=== PATIENT | male | born 1945 | race Caucasian/White ===

== ENCOUNTER 2017-01-04 | Outpatient (CLI) | payer MEDICARE | END 2017-01-04 15:06 | disposition short-term general hospital (02) | DX: R07.9 Chest pain, unspecified (principal) | CPT/HCPCS: A0425; A0427 ==

== ENCOUNTER → 2018-01-13 | Outpatient (CLI) | payer MEDICARE ==
[2018-01-13 17:50] LABS: BASOPHILS % (AUTO) 0.5 %; EOSINOPHILS # (AUTO) 0.2 10^3/uL (0.0-0.7); EOSINOPHILS % (AUTO) 2.5 %; HGB - HEMOGLOBIN 13.6 g/dL (14.0-18.0); LYMPHOCYTES # (AUTO) 1.8 10^3/uL (1.5-3.5); LYMPHOCYTES % (AUTO) 20.3 %; MEAN CORPUSCULAR HEMOGLOBIN 30.8 pg (27.0-31.0); MEAN CORPUSCULAR VOLUME 93.2 fL (80.0-94.0); MEAN PLATELET VOLUME 8.4 fL (7.4-11.4); MONOCYTES # (AUTO) 0.8 10^3/uL (0.0-1.0); MONOCYTES % (AUTO) 8.8 %; NEUTROPHILS % (AUTO) 67.9 %; PLT - PLATELET COUNT 240 10^3/uL (130-450); RED BLOOD COUNT 4.43 10^6/uL (4.70-6.10); RED CELL DISTRIBUTION WIDTH 13.3 % (12.0-15.0); WHITE BLOOD COUNT 8.9 x10^3/uL (4.8-10.8)
[2018-01-13 17:52] LABS: ALBUMIN/GLOBULIN RATIO 1.4 (1.0-2.2); BILIRUBIN,TOTAL 0.7 mg/dL (0.2-1.0); CALCIUM 8.9 mg/dL (8.5-10.3); CREATININE 0.8 mg/dL (0.6-1.2); TOTAL PROTEIN 6.8 g/dL (6.7-8.2)
== END ==
LOC: LAB.S 08:00
PROVIDERS: ATTEND Physician Assistant Medical
DX: I25.10 Atherosclerotic heart disease of native coronary artery without angina pectoris (principal); Z51.81 Encounter for therapeutic drug level monitoring; Z79.899 Other long term (current) drug therapy
CPT/HCPCS: 36415; 80053; 85025

== ENCOUNTER 2018-05-16 07:24 | Outpatient (CLI) | payer MEDICARE, OTHER ==
[2018-05-16 12:58] LABS: CHOL/HDL RATIO 2.1 (<5.0); CHOLESTEROL 143 mg/dL; HDL CHOLESTEROL 69 mg/dL; LDL CHOLESTEROL,CALCULATED 65 mg/dL; LDL/HDL RATIO 0.9 (<3.6); VLDL CHOLESTEROL 9 mg/dL
== END 2018-05-16 07:25 | disposition home or self-care (01) ==
LOC: LAB.F 07:24
PROVIDERS: ATTEND Physician Assistant Medical
DX: I25.10 Atherosclerotic heart disease of native coronary artery without angina pectoris (principal)
CPT/HCPCS: 36415; 80061; 83721

== ENCOUNTER 2018-06-20 09:15 | Outpatient (CLI) | payer MEDICARE, OTHER | END 2018-06-20 09:16 | disposition home or self-care (01) | LOC: LAB.F 09:15 | PROVIDERS: ATTEND Physician Assistant Medical | DX: Z12.5 Encounter for screening for malignant neoplasm of prostate (principal) | CPT/HCPCS: 36415; G0103; 84153 ==

== ENCOUNTER 2019-07-15 07:33 | Outpatient (CLI) | payer MEDICARE, OTHER ==
[2019-07-15 10:23] LABS: ALBUMIN/GLOBULIN RATIO 1.4 (1.0-2.2); ALKALINE PHOSPHATASE 46 IU/L (42-121); ALT ALANINE AMINOTRANSFERASE 22 IU/L (10-60); AST ASPARTATE AMINOTRANSFERASE 19 IU/L (10-42); BILIRUBIN,TOTAL 0.8 mg/dL (0.2-1.0); BUN - BLOOD UREA NITROGEN 22 mg/dL (6-20); CALCIUM 8.9 mg/dL (8.5-10.3); CARBON DIOXIDE - CO2 30 mmol/L (21-32); CHLORIDE 104 mmol/L (101-111); CHOLESTEROL 154 mg/dL; CREATININE 0.7 mg/dL (0.6-1.2); GFR - MDRD 110 (>89); GLUCOSE 91 mg/dL (70-100); HDL CHOLESTEROL 76 mg/dL; SODIUM 139 mmol/L (135-145); TOTAL PROTEIN 6.8 g/dL (6.7-8.2)
== END 2019-07-15 07:34 | disposition home or self-care (01) ==
LOC: LAB.S 07:33
PROVIDERS: ATTEND Internal Medicine
DX: E78.5 Hyperlipidemia, unspecified (principal); N40.1 Benign prostatic hyperplasia with lower urinary tract symptoms; N13.8 Other obstructive and reflux uropathy
CPT/HCPCS: 36415; 80053; 80061; 83721; 84153

== ENCOUNTER 2020-08-08 07:34 | Outpatient (CLI) | payer MEDICARE, OTHER ==
[2020-08-08 15:36] LABS: ALBUMIN 4.3 g/dL (3.2-5.5); ALBUMIN/GLOBULIN RATIO 1.7 (1.0-2.2); ALKALINE PHOSPHATASE 56 IU/L (42-121); ALT ALANINE AMINOTRANSFERASE 17 IU/L (10-60); AST ASPARTATE AMINOTRANSFERASE 18 IU/L (10-42); BILIRUBIN,TOTAL 1.1 mg/dL (0.2-1.0); BUN - BLOOD UREA NITROGEN 21 mg/dL (6-20); CALCIUM 9.5 mg/dL (8.5-10.3); CARBON DIOXIDE - CO2 28 mmol/L (21-32); CHLORIDE 106 mmol/L (101-111); CHOL/HDL RATIO 2.3 (<5.0); CHOLESTEROL 162 mg/dL; CREATININE 0.7 mg/dL (0.6-1.2); GLUCOSE 99 mg/dL (70-100); HDL CHOLESTEROL 72 mg/dL; LDL CHOLESTEROL,CALCULATED 80 mg/dL; LDL/HDL RATIO 1.1 (<3.6); SODIUM 141 mmol/L (135-145); TOTAL PROTEIN 6.9 g/dL (6.7-8.2); VLDL CHOLESTEROL 10 mg/dL
== END 2020-08-08 07:35 | disposition home or self-care (01) ==
LOC: LAB.S 07:34
PROVIDERS: ATTEND Internal Medicine
DX: E78.5 Hyperlipidemia, unspecified (principal); N40.1 Benign prostatic hyperplasia with lower urinary tract symptoms
CPT/HCPCS: 36415; 80053; 80061; 83721

== ENCOUNTER 2020-11-26 08:00 | Outpatient (CLI) | payer MEDICARE, OTHER ==
[2020-11-26 15:26] LABS: BASOPHILS % (AUTO) 0.2 %; EOSINOPHILS # (AUTO) 0.1 10^3/uL (0.0-0.7); EOSINOPHILS % (AUTO) 0.7 %; LYMPHOCYTES % (AUTO) 8.1 %; MEAN CORPUSCULAR HEMOGLOBIN 30.4 pg (27.0-31.0); MEAN CORPUSCULAR HGB CONC 31.7 g/dL (32.0-36.0); MEAN CORPUSCULAR VOLUME 95.9 fL (80.0-94.0); MEAN PLATELET VOLUME 9.4 fL (7.4-11.4); MONOCYTES % (AUTO) 8.5 %; NEUTROPHILS % (AUTO) 82.2 %; PLT - PLATELET COUNT 370 10^3/uL (130-450); RED BLOOD COUNT 3.95 10^6/uL (4.70-6.10); RED CELL DISTRIBUTION WIDTH 12.2 % (12.0-15.0); WHITE BLOOD COUNT 12.2 x10^3/uL (4.8-10.8)
[2020-11-26 15:34] LABS: CRP - C-REACTIVE PROTEIN 7.8 mg/dL (0-1.0)
== END 2020-11-26 23:59 | disposition home or self-care (01) ==
LOC: LAB.S 08:00
PROVIDERS: ATTEND Physician Assistant Medical
DX: R53.83 Other fatigue (principal); D64.9 Anemia, unspecified; M25.50 Pain in unspecified joint
CPT/HCPCS: 36415; 82728; 83540; 84443; 84466; 85025; 85651; 86140

== ENCOUNTER 2020-11-26 09:35 | Outpatient (CLI) | payer MEDICARE, OTHER | END 2020-11-26 23:59 | disposition home or self-care (01) | LOC: LAB.R 09:35 | PROVIDERS: ATTEND Physician Assistant Medical | DX: R31.9 Hematuria, unspecified (principal); R68.89 Other general symptoms and signs; R53.83 Other fatigue | CPT/HCPCS: 87086 ==

== ENCOUNTER 2020-12-06 07:44 | Outpatient (CLI) | payer MEDICARE, OTHER ==
[2020-12-06 16:02] LABS: BASOPHILS % (AUTO) 0.3 %; EOSINOPHILS # (AUTO) 0.1 10^3/uL (0.0-0.7); EOSINOPHILS % (AUTO) 0.5 %; HGB - HEMOGLOBIN 12.2 g/dL (14.0-18.0); LYMPHOCYTES # (AUTO) 0.9 10^3/uL (1.5-3.5); LYMPHOCYTES % (AUTO) 7.9 %; MEAN CORPUSCULAR HEMOGLOBIN 29.7 pg (27.0-31.0); MEAN CORPUSCULAR VOLUME 95.6 fL (80.0-94.0); MEAN PLATELET VOLUME 9.9 fL (7.4-11.4); MONOCYTES % (AUTO) 8.1 %; NEUTROPHILS # (AUTO) 9.8 10^3/uL (1.5-6.6); NEUTROPHILS % (AUTO) 82.7 %; PLT - PLATELET COUNT 406 10^3/uL (130-450); RED BLOOD COUNT 4.11 10^6/uL (4.70-6.10); RED CELL DISTRIBUTION WIDTH 12.3 % (12.0-15.0); WHITE BLOOD COUNT 11.8 x10^3/uL (4.8-10.8)
[2020-12-06 16:30] LABS: ALBUMIN 3.3 g/dL (3.2-5.5); BILIRUBIN,TOTAL 0.7 mg/dL (0.2-1.0); CALCIUM 8.9 mg/dL (8.5-10.3); CREATININE 0.6 mg/dL (0.6-1.2); CRP - C-REACTIVE PROTEIN 6.2 mg/dL (0-1.0); TOTAL PROTEIN 6.5 g/dL (6.7-8.2)
== END 2020-12-06 07:45 | disposition home or self-care (01) ==
LOC: LAB.S 07:44
PROVIDERS: ATTEND Internal Medicine
DX: I25.10 Atherosclerotic heart disease of native coronary artery without angina pectoris (principal); R53.1 Weakness; R79.82 Elevated C-reactive protein (CRP); R31.9 Hematuria, unspecified; R68.89 Other general symptoms and signs; M75.101 Unspecified rotator cuff tear or rupture of right shoulder, not specified as traumatic
CPT/HCPCS: 36415; 80053; 82533; 85025; 85651; 86140

== ENCOUNTER 2020-12-11 08:04 | Outpatient (CLI) | payer MEDICARE, OTHER | END 2020-12-11 08:05 | disposition left against medical advice (07) | LOC: EMS 08:04 | PROVIDERS: ATTEND Surgery | DX: R53.1 Weakness (principal) ==

== ENCOUNTER 2021-01-30 08:48 | Outpatient (CLI) | payer MEDICARE, OTHER | END 2021-01-30 08:49 | disposition home or self-care (01) | LOC: LAB.S 08:48 | PROVIDERS: ATTEND Internal Medicine | DX: R53.1 Weakness (principal) | CPT/HCPCS: 36415; 85651; 86140 ==

== ENCOUNTER 2021-02-22 09:45 | Outpatient (CLI) | payer MEDICARE, OTHER | END 2021-02-22 09:46 | disposition home or self-care (01) | LOC: LAB.S 09:45 | PROVIDERS: ATTEND Internal Medicine | DX: M62.50 Muscle wasting and atrophy, not elsewhere classified, unspecified site (principal) | CPT/HCPCS: 36415; 81599; 84402; 84403 ==

== ENCOUNTER 2021-03-24 14:14 | Outpatient (CLI) | payer MEDICARE, OTHER ==
--- NOTE | 2021-03-24 15:57 | DEXA Report ---
PROCEDURE: Dexa Spine and/or Hip INDICATIONS: OSTEOPOROSIS TECHNIQUE: Dual energy x-ray absorptiometry (DXA) was performed on a [employer] System. Regions measur ed are the AP Spine, femoral neck, and if needed forearm. COMPARISON: None. FINDINGS: Lumbar Spine: Bone Mineral Density 1.131 g/cm/cm,T score -1.3. Left Hip: Bone Mineral Density 1.453 g/cm/cm,T score 2.4. Left Femoral Neck: Bone Mineral Density 1.165 g/cm/cm, T score 0.7. (T score greater or equal to -1.0: NORMAL) (T score from -1.1 to -2.4: OSTEOPENIA) (T score less than or equal to -2.5 to: OSTEOPOROSIS) Impression: Based on WHO criteria, the patient's bone mineral density is normal. Patients with diagnosis of osteoporosis or osteopenia should have regular bone mineral density assess ment. For those eligible for Medicare, routine testing is allowed once every 2 years. Testing frequ ency can be increased for patients who have rapidly progressing disease or for those who are receivin g medical therapy to restore bone mass. Reviewed by: Gentry Iniguez MD on 03/24/2021 3:56 PM PDT Approved by: Gentry Iniguez MD on 03/24/2021 3:56 PM PDT Station ID: [id number]
== END 2021-03-24 14:15 | disposition home or self-care (01) ==
LOC: DI 14:14
PROVIDERS: ATTEND Internal Medicine Rheumatology
DX: M81.0 Age-related osteoporosis without current pathological fracture (principal)

== ENCOUNTER 2021-04-12 10:21 | Outpatient (CLI) | payer MEDICARE, OTHER ==
[2021-04-12 12:05] LABS: BASOPHILS % (AUTO) 0.3 %; EOSINOPHILS # (AUTO) 0.1 10^3/uL (0.0-0.7); EOSINOPHILS % (AUTO) 0.8 %; HCT - HEMATOCRIT 41.9 % (42.0-52.0); HGB - HEMOGLOBIN 12.9 g/dL (14.0-18.0); LYMPHOCYTES # (AUTO) 1.4 10^3/uL (1.5-3.5); LYMPHOCYTES % (AUTO) 10.2 %; MEAN CORPUSCULAR HEMOGLOBIN 28.6 pg (27.0-31.0); MEAN CORPUSCULAR HGB CONC 30.8 g/dL (32.0-36.0); MEAN CORPUSCULAR VOLUME 92.9 fL (80.0-94.0); MEAN PLATELET VOLUME 9.7 fL (7.4-11.4); MONOCYTES % (AUTO) 7.4 %; NEUTROPHILS % (AUTO) 80.8 %; PLT - PLATELET COUNT 292 10^3/uL (130-450); RED BLOOD COUNT 4.51 10^6/uL (4.70-6.10); RED CELL DISTRIBUTION WIDTH 14.7 % (12.0-15.0); WHITE BLOOD COUNT 13.6 x10^3/uL (4.8-10.8)
[2021-04-12 18:20] LABS: ALBUMIN/GLOBULIN RATIO 1.4 (1.0-2.2); ALKALINE PHOSPHATASE 40 IU/L (42-121); ALT ALANINE AMINOTRANSFERASE 19 IU/L (10-60); AST ASPARTATE AMINOTRANSFERASE 17 IU/L (10-42); BILIRUBIN,TOTAL 0.7 mg/dL (0.2-1.0); BUN - BLOOD UREA NITROGEN 19 mg/dL (6-20); CALCIUM 9.4 mg/dL (8.5-10.3); CARBON DIOXIDE - CO2 29 mmol/L (21-32); CHLORIDE 104 mmol/L (101-111); CREATININE 0.7 mg/dL (0.6-1.2); CRP - C-REACTIVE PROTEIN < 1.0 mg/dL (0-1.0); GFR - MDRD 109 (>89); GLUCOSE 71 mg/dL (70-100); SODIUM 139 mmol/L (135-145); TOTAL PROTEIN 6.8 g/dL (6.7-8.2)
[2021-04-14 12:04] LABS: HEPATITIS C ANTIBODY NON-REACTIVE (NON-REACTIVE)
[2021-04-19 11:55] LABS: HEPATITIS B SURFACE ANTIGEN NON-REACTIVE
== END 2021-04-12 23:59 | disposition home or self-care (01) ==
LOC: LAB.WCP 10:21
PROVIDERS: ATTEND Internal Medicine Rheumatology
DX: M35.3 Polymyalgia rheumatica (principal)
CPT/HCPCS: 36415; 80053; 85025; 85651; 86140; 86803; 87340

== ENCOUNTER 2021-08-02 11:02 | Outpatient (CLI) | payer MEDICARE, OTHER ==
[2021-08-02 17:55] LABS: BASOPHILS % (AUTO) 0.2 %; EOSINOPHILS # (AUTO) 0.1 10^3/uL (0.0-0.7); EOSINOPHILS % (AUTO) 0.4 %; HGB - HEMOGLOBIN 13.6 g/dL (14.0-18.0); LYMPHOCYTES # (AUTO) 0.9 10^3/uL (1.5-3.5); LYMPHOCYTES % (AUTO) 8.2 %; MEAN CORPUSCULAR HGB CONC 31.6 g/dL (32.0-36.0); MEAN CORPUSCULAR VOLUME 94.7 fL (80.0-94.0); MEAN PLATELET VOLUME 9.8 fL (7.4-11.4); MONOCYTES # (AUTO) 0.4 10^3/uL (0.0-1.0); MONOCYTES % (AUTO) 3.7 %; NEUTROPHILS % (AUTO) 87.2 %; PLT - PLATELET COUNT 276 10^3/uL (130-450); RED BLOOD COUNT 4.54 10^6/uL (4.70-6.10); RED CELL DISTRIBUTION WIDTH 14.2 % (12.0-15.0); WHITE BLOOD COUNT 11.5 x10^3/uL (4.8-10.8)
[2021-08-02 18:12] LABS: ALBUMIN 4.1 g/dL (3.2-5.5); ALBUMIN/GLOBULIN RATIO 1.4 (1.0-2.2); ALKALINE PHOSPHATASE 45 IU/L (42-121); ALT ALANINE AMINOTRANSFERASE 22 IU/L (10-60); AST ASPARTATE AMINOTRANSFERASE 18 IU/L (10-42); BILIRUBIN,TOTAL 0.6 mg/dL (0.2-1.0); BUN - BLOOD UREA NITROGEN 20 mg/dL (6-20); CALCIUM 9.2 mg/dL (8.5-10.3); CARBON DIOXIDE - CO2 27 mmol/L (21-32); CHLORIDE 104 mmol/L (101-111); CREATININE 0.6 mg/dL (0.6-1.2); GFR - MDRD 131 (>89); GLUCOSE 92 mg/dL (70-100); SODIUM 139 mmol/L (135-145)
[2021-08-02 18:21] LABS: THYROID STIMULATING HORMONE 1.64 uIU/mL (0.34-5.60)
[2021-08-02 19:10] LABS: CRP - C-REACTIVE PROTEIN < 1.0 mg/dL (0-1.0)
== END 2021-08-02 23:59 | disposition home or self-care (01) ==
LOC: LAB.WCP 11:02
PROVIDERS: ATTEND Internal Medicine
DX: M35.3 Polymyalgia rheumatica (principal); R53.83 Other fatigue
CPT/HCPCS: 36415; 80053; 84443; 85025; 85651; 86140

== ENCOUNTER 2022-01-08 13:32 | Emergency (ER) | payer MEDICARE, OTHER ==
[2022-01-08 13:39] VITALS: BP 148/68
--- NOTE | 2022-01-08 13:44 | ED Physician Documentation ---
PD HPI MALE - Stated complaint Stated Complaint: GROIN PX - Chief complaint Chief Complaint: General - History obtained from History obtained from: Patient - History of Present Illness Timing - onset: How many weeks ago (1 1/2) Timing - duration: Weeks Timing - details: Gradual onset, Still present (has noted swelling of left scrotum increasingly over 1 1/2 weeks, noted when in shower or with changing clothes. Does not have pain.) Associated symptoms: Scrotal swelling. No: Dysuria, Urinary frequency, Genital sore / lesion, Abdominal pain Similar symptoms before: Has not had sx before Recently seen: Clinic (went [facility] eval and was referred to ER for testing, rather than arranging outpatient [facility]/S.) Review of Systems Constitutional: denies: Fever, Chills : denies: Dysuria, Frequency, Discharge Skin: denies: Rash PD PAST MEDICAL HISTORY - Past Medical History Cardiovascular: Hypertension : Benign prostate hypertrophy HEENT: Chronic vision loss - Past Surgical History Past Surgical History: Yes HEENT: Cataracts Derm: Skin cancer surgery - Present Medications Home Medications: Ambulatory Orders Medication Instructions Recorded Confirmed Finasteride [Proscar] 5 mg PO DAILY 02/08/14 01/08/22 Tamsulosin [Flomax] 0.4 mg PO DAILY 02/08/14 01/08/22 Famotidine [Acid-Pep] 20 mg PO DAILY 01/08/22 01/08/22 Prednisone [Marilu] 4 mg PO DAILY 01/08/22 01/08/22 - Allergies Allergies/Adverse Reactions: Allergies Allergy/AdvReac Type Severity Reaction Status Date / Time No Known Drug Allergies Allergy Verified 01/08/22 13:35 - Social History Does the pt smoke?: No Smoking Status: Never smoker Does the pt drink ETOH?: Yes Does the pt have substance abuse?: No - Immunizations Immunizations are current?: Yes PD ED PE NORMAL - Vitals Vital signs reviewed: Yes - General General: Alert and oriented X 3, No acute distress, Well developed/nourished - Abdomen Abdomen: Soft, Non tender - Male Male : Other (normal penis and inguinal area without hernias nor adenopathy. right testicle/scrotal area normal architecture and not tender. Left scrotum with large fullness/fluctuance and hard to distinguish testicle/other swelling. NO tenderness. ) - Rectal Rectal: Deferred - Back Back: No CVA TTP - Derm Derm: Normal color, Warm and dry Results - Vitals Vitals: Vital Signs - 24 hr 01/08/22 13:35 Temperature 36.5 C Heart Rate 85 Respiratory 16 Rate Blood Pressure 148/68 H O2 Saturation 100 Oxygen O2 Source Room air - Labs Labs: Laboratory Tests 01/08/22 14:25 Urine Color YELLOW Urine Clarity CLEAR Urine pH 7.0 Ur Specific [place] 1.020 Urine Protein NEGATIVE Urine Glucose (UA) NEGATIVE Urine Ketones NEGATIVE Urine Occult Blood TRACE-INTA Urine Nitrite NEGATIVE Urine Bilirubin NEGATIVE Urine Urobilinogen 0.2 (NORMAL) Ur Leukocyte Esterase NEGATIVE Ur Microscopic Review NOT INDICATED Urine Culture Comments NOT INDICATED - Rads (name of study) scrotal U/S Radiology: Prelim report reviewed (normal testicles. Large hydrocele left scrotum. ), See rad report PD MEDICAL DECISION MAKING - ED course Complexity details: reviewed results (large hydrocele. Testicle okay. ), considered differential (swelling without tenderness left scrotum, consider hydrocele or other process. ), d/w patient Departure - Departure Disposition: 01 Home, Self Care Clinical Impression: Scrotal swelling, Hydrocele in adult Condition: Stable Record reviewed to determine appropriate education?: Yes Instructions: ED Hydrocele Type Not Specified Follow-Up: Luis Alberto Rao MD [Primary Care Provider] - Carroll Hassan MD [Physician No Access] - Ramya Cohn MD [Provider Admit Priv/Credential] - Comments: Your ultrasound shows a large fluid collection adjacent to the testicle. This is called a hydrocele. It is a benign collection of fluid and sometimes will resorb and get better on its own. The testicle itself looked fine on ultrasound. If the swelling continues, the urologist can drain it so it is less symptomatic. Follow-up with the urologist for subsequent appointment. Agree provided the name for a couple of them in [place] or [place]. Otherwise you could get other referrals through your primary care if those are not able to see you. Discharge Date/Time: 01/08/22 16:21
[2022-01-08 14:38] LABS: BILIRUBIN,URINE NEGATIVE (NEGATIVE); GLUCOSE, URINE (UA) NEGATIVE (NEGATIVE); KETONES,URINE (UA) NEGATIVE (NEGATIVE); LEUKOCYTE ESTERASE, URINE NEGATIVE (NEGATIVE); NITRITE,URINE NEGATIVE (NEGATIVE); OCCULT BLOOD,URINE TRACE-INTA (NEGATIVE); PROTEIN,URINE NEGATIVE (NEGATIVE); UROBILINOGEN,URINE 0.2 (NORMAL) E.U./dL (NORMAL)
[2022-01-08 14:39] LABS: CLARITY,URINE CLEAR (CLEAR)
--- NOTE | 2022-01-08 15:45 | Ultrasound Report ---
PROCEDURE: Testicle w/Doppler INDICATIONS: left testicle/scrotal swelling for several days. TECHNIQUE: Real-time scanning was performed of the scrotum and testicles, with image documentation. Color and p ulse Doppler interrogation was performed of both testicles. COMPARISON: None. FINDINGS: Right: Testicle is normal in size at 5.1 x 2.8 x 2.9 cm, and homogenous in echotexture. Multiple epi didymal cysts are present the largest measuring 2.5 x 2.1 x 2.7 cm. There is a small hydrocele. Overl flash scrotal skin is normal in thickness. Left: Testicle is normal in size at 4.7 x 2.9 x 3.2 cm, and homogeneous in echotexture. Multiple epi didymal cysts are present the largest measuring 2.6 x 1.1 x 2.1 cm. Large hydrocele is present. Overl flash scrotal skin is normal in thickness. Doppler: Color and pulse Doppler demonstrate normal and symmetric arterial flow in both testicles. IMPRESSION: Bilateral hydroceles, left greater than right. Bilateral epididymal cysts. No torsion at time of exam. Intermittent torsion cannot be excluded. Reviewed by: Jud Marsh MD on 01/08/2022 3:44 PM PST Approved by: Jud Marsh MD on 01/08/2022 3:44 PM PST Station ID: [id number]
== END 2022-01-08 16:21 | disposition home or self-care (01) ==
LOC: ED 13:32
DX: N43.3 Hydrocele, unspecified (principal)
CPT/HCPCS: 81001; 81003; 87086; 93975; 99282; 99284

== ENCOUNTER 2022-05-25 07:25 | Outpatient (CLI) | payer MEDICARE, OTHER | END 2022-05-25 07:26 | disposition home or self-care (01) | LOC: LAB.S 07:25 | PROVIDERS: ATTEND Internal Medicine Rheumatology | DX: M35.3 Polymyalgia rheumatica (principal) | CPT/HCPCS: 36415; 85651; 86140 ==

== ENCOUNTER 2023-02-01 09:15 | Outpatient (CLI) | payer MEDICARE, OTHER ==
[2023-02-01 15:18] LABS: ALBUMIN 3.9 g/dL (3.2-5.5); ALBUMIN/GLOBULIN RATIO 1.3 (1.0-2.2); ALKALINE PHOSPHATASE 61 IU/L (42-121); ALT ALANINE AMINOTRANSFERASE 17 IU/L (10-60); AST ASPARTATE AMINOTRANSFERASE 17 IU/L (10-42); BILIRUBIN,TOTAL 0.6 mg/dL (0.2-1.0); BUN - BLOOD UREA NITROGEN 19 mg/dL (6-20); CALCIUM 8.8 mg/dL (8.5-10.3); CARBON DIOXIDE - CO2 27 mmol/L (21-32); CHLORIDE 105 mmol/L (101-111); CREATININE 0.7 mg/dL (0.6-1.2); GFR - MDRD 109 (>89); GLUCOSE 119 mg/dL (70-100); POTASSIUM 3.7 mmol/L (3.5-5.0); SODIUM 138 mmol/L (135-145); TOTAL PROTEIN 6.9 g/dL (6.7-8.2)
[2023-02-01 15:33] LABS: CRP - C-REACTIVE PROTEIN < 1.0 mg/dL (0-1.0)
== END 2023-02-01 09:16 | disposition home or self-care (01) ==
LOC: LAB.S 09:15
PROVIDERS: ATTEND Internal Medicine Rheumatology
DX: M35.3 Polymyalgia rheumatica (principal)
CPT/HCPCS: 36415; 80053; 85651; 86140

== ENCOUNTER 2023-03-01 09:15 | Outpatient (CLI) | payer MEDICARE, OTHER | END 2023-03-01 09:16 | disposition home or self-care (01) | LOC: LAB.S 09:15 | PROVIDERS: ATTEND Internal Medicine Rheumatology | DX: M35.3 Polymyalgia rheumatica (principal) | CPT/HCPCS: 36415; 85651; 86140 ==

== ENCOUNTER 2023-11-21 13:34 | Outpatient (CLI) | payer MEDICARE, OTHER ==
--- NOTE | 2023-11-21 17:39 | XRAY Report ---
PROCEDURE: Knee 1-2V BL INDICATIONS: BILATERAL KNEE PAIN TECHNIQUE: 3 views of the knee(s) were acquired. COMPARISON: None. FINDINGS: Bones: There is mild bilateral medial femorotibial compartment narrowing. A lucency is present withi n the intracondylar left tibial spine. Soft tissues: There is a small left and a moderate right knee joint effusion. No suspicious soft tiss ue calcifications or masses. IMPRESSION: 1. Mild bilateral knee osteoarthritis. 2. Bony lucency in the left tibial plateau suggests subchondral cystic change. 3. Bilateral knee joint effusions. Reviewed by: Luba Story MD on 11/21/2023 5:38 PM PST Approved by: Luba Story MD on 11/21/2023 5:38 PM PST Station ID: [id number]
[2023-11-21 19:49] LABS: BASOPHILS % (AUTO) 0.3 %; EOSINOPHILS # (AUTO) 0.1 10^3/uL (0.0-0.7); EOSINOPHILS % (AUTO) 1.2 %; HCT - HEMATOCRIT 42.6 % (42.0-52.0); HGB - HEMOGLOBIN 13.7 g/dL (14.0-18.0); LYMPHOCYTES # (AUTO) 1.7 10^3/uL (1.5-3.5); MEAN CORPUSCULAR HEMOGLOBIN 30.4 pg (27.0-31.0); MEAN CORPUSCULAR HGB CONC 32.2 g/dL (32.0-36.0); MEAN CORPUSCULAR VOLUME 94.7 fL (80.0-94.0); MONOCYTES # (AUTO) 0.8 10^3/uL (0.0-1.0); MONOCYTES % (AUTO) 7.2 %; NEUTROPHILS # (AUTO) 8.8 10^3/uL (1.5-6.6); NEUTROPHILS % (AUTO) 76.2 %; PLT - PLATELET COUNT 290 10^3/uL (130-450); RED CELL DISTRIBUTION WIDTH 13.6 % (12.0-15.0); WHITE BLOOD COUNT 11.6 x10^3/uL (4.8-10.8)
[2023-11-21 20:11] LABS: THYROID STIMULATING HORMONE 2.55 uIU/mL (0.34-5.60)
[2023-11-21 20:15] LABS: ALBUMIN 4.3 g/dL (3.2-5.5); ALBUMIN/GLOBULIN RATIO 1.7 (1.0-2.2); BILIRUBIN,TOTAL 0.4 mg/dL (0.2-1.0); CALCIUM 9.5 mg/dL (8.5-10.3); CREATININE 0.6 mg/dL (0.6-1.3); CRP - C-REACTIVE PROTEIN 0.6 mg/dL (<0.5); POTASSIUM 4.1 mmol/L (3.5-4.5); TOTAL PROTEIN 6.9 g/dL (6.4-8.9)
[2023-11-21 20:17] LABS: RHEUMATOID FACTOR NEGATIVE (Negative)
[2023-11-25 18:08] LABS: ANTINUCLEAR ANTIBODIES IFA Negative (.)
[2023-11-26 16:08] LABS: CYCLIC CITRULLINATED PEP IGG/A 6 units (0-19)
== END 2023-11-21 13:35 | disposition home or self-care (01) ==
LOC: DI.S 13:34
PROVIDERS: ATTEND Internal Medicine Rheumatology
DX: M17.0 Bilateral primary osteoarthritis of knee (principal); M25.50 Pain in unspecified joint; R41.0 Disorientation, unspecified; M35.3 Polymyalgia rheumatica; M25.461 Effusion, right knee; M25.462 Effusion, left knee
CPT/HCPCS: 36415; 80053; 82550; 84443; 85025; 85651; 86038; 86140; 86200; 86430

== ENCOUNTER 2024-02-25 10:13 | Outpatient (CLI) | payer MEDICARE, OTHER ==
--- NOTE | 2024-02-25 11:11 | MRI Report ---
PROCEDURE: Brain WO INDICATIONS: MEMORY LOSS TECHNIQUE: Noncontrast axial T1 spin echo, axial T2 fast spin echo, sagittal and axial FLAIR, coronal T2 fast sp in echo, axial gradient echo, axial diffusion and ADC through the brain. COMPARISON: None. FINDINGS: Image quality: Excellent. CSF Spaces: Basal cisterns are patent. No extra-axial fluid collections. Ventricles are normal in size and shape. Brain: No intracranial masses or hemorrhage. Llamas/white matter interface is normal. Brainstem appe ars normal. Diffusion-weighted images demonstrate no acute ischemic insult. No chronic ischemic ins ults. Normal intravascular flow voids are present. Age-appropriate brain parenchymal volume loss an d chronic small vessel ischemic change can be seen. Skull and face: Calvarium has normal marrow signal. Orbits appear normal. Incidental note is made of bilateral lens replacements. Sinuses: Sinuses and mastoids are clear. IMPRESSION: Intracranial study within normal limits for age, with note made of brain parenchymal volume loss and chronic small vessel ischemic change. No findings of acute or subacute infarction are seen. No prior territorial infarction can be seen. Reviewed by: Ruben Buck MD on 02/25/2024 10:10 AM DEAN Approved by: Ruben Buck MD on 02/25/2024 10:10 AM DEAN Station ID: [id number]
== END 2024-02-25 10:14 | disposition home or self-care (01) ==
LOC: DI 10:13
PROVIDERS: ATTEND Psychiatry & Neurology Neurology
DX: R41.3 Other amnesia (principal)

== ENCOUNTER 2024-03-17 14:54 | Outpatient (CLI) | payer MEDICARE, OTHER | END 2024-03-17 14:55 | disposition home or self-care (01) | LOC: DI 14:54 | PROVIDERS: ATTEND Registered Nurse | DX: I51.9 Heart disease, unspecified (principal); I27.20 Pulmonary hypertension, unspecified; I38 Endocarditis, valve unspecified | CPT/HCPCS: 93307 ==